=== PATIENT | female | born 1935 | race Caucasian/White ===

== ENCOUNTER 2017-01-29 08:50 | Inpatient (IN) | payer MEDICARE, BC ==
[~2017-01-29 08:50] MED LIST: MORPHINE SULFATE 15 MG TABLET.SA PO PRN; RINGERS SOLUTION,LACTATED 1,000 ML IV PRN; ROPIVACAINE HCL/PF 100 MG, KETOROLAC TROMETHAMINE 30 MG, EPINEPHrine 0.2 MG in NORMAL S... IJ PRN; TRANEXAMIC ACID 1,000 MG in NORMAL SALINE 100 ML IV PRN; ceFAZolin SODIUM 1 GM VIAL IV PRN
--- OUTSIDE RECORDS SUMMARY | 2017-01-29 08:54 | XMS REPORT | Continuity of Care Document ---
:1935 Author Organization [employer] [place] [address] Care Team Providers Name Role Phone Guero Henry Juliana Primary Care Provider [phone] Source Comments This disclosure is being made pursuant to the [employer] program and maynot contain all information available regarding this patient.[employer] Active Allergies and Adverse Reactions No Known Allergies Current Medications Be aware that medications may not be up to date as of this document. Alwaysverify current medications with the patient. Prescription Sig. Disp. Refills Start Date End Date Status metformin Take 1,000 mg by Active (GLUCOPHAGE) 1000 MG mouth 2 (two) tablet times daily with meals. losartan (COZAAR) 25 Take 25 mg by Active MG tablet mouth daily. glimepiride (AMARYL) Take 2 mg by mouth Active 2 MG tablet every morning before breakfast. simvastatin (ZOCOR) Take 20 mg by Active 20 MG tablet mouth nightly. aspirin 325 MG EC Take 1 tablet by 60 tablet 0 10/31/2013 Active tablet mouth 2 (two) times daily. gabapentin Take 1 capsule by 14 capsule 0 10/31/2013 Active (NEURONTIN) 300 MG mouth nightly. capsule HYDROcodone-acetamino Take 1-2 tablets 80 tablet 1 10/31/2013 Active phen (NORCO) 7.5-325 by mouth every 4 MG per tablet (four) hours as needed. Indications: Moderate to Moderately Severe Pain Active Problems Problem Noted Date Postoperative anemia due to acute blood loss 10/29/2013 PONV (postoperative nausea and vomiting) 10/29/2013 S/P total knee replacement, Right 10/28/13 Dr. Barrett 10/28/2013 Hypertension Arthritis Diabetes mellitus type II, non insulin dependent (HCC) Hyperlipidemia Most Recent Encounters Date Type Specialty Providers Description 12/26/2016 Surgery General Surgery Casper Barrett MD Canceled LEFT TOTAL KNEE REPLACEMENT Social History Tobacco Use Types Packs/Day Years Used Date Never Smoker Smokeless Tobacco: Never Used Alcohol Use Drinks/Week oz/Week Comments No Last Filed Vital Signs Vital Sign Reading Time Taken Blood Pressure 152/72 10/31/2013 7:41 AM CDT Pulse 88 10/31/2013 7:41 AM CDT Temperature 36.7 C (98 F) 10/31/2013 7:41 AM CDT Respiratory Rate 16 10/31/2013 7:41 AM CDT Height 1.676 m (5' 6") 10/28/2013 8:39 AM CDT Weight 65.9 kg (145 lb 4.5 oz) 10/28/2013 8:39 AM CDT Body Mass Index 23.46 10/28/2013 8:39 AM CDT Oxygen Saturation 94% 10/31/2013 7:41 AM CDT Plan of Care Health Maintenance Due Date Last Done Comments Tetanus/Pertussis (1 - Tdap) 1952 Well Adult Visit 1983 Zoster Vaccine 60+ 1993 Bone Density 1998 Pneumococcal Low/Medium Risk 65+ (1 of 2 - PCV13) 1998 Influenza Immunization (#1) 2016 Results from Last 3 Months Not on file Insurance Payer Benefit Plan / Group Subscriber ID Type Phone Address MEDICARE MEDICARE A AND B [id number] [phone] [address] [place] [address] [employer] [place] [place] [id number] [phone] [id number] SUPPLEMENT [address] [place] [address]
--- NOTE | 2017-01-29 10:49 | PREOP NOTE ---
Preoperative Progress Note - Preoperative Changes Changes to Preop Condition?: No Changes
[2017-01-29] MEDS ORDERED: RINGERS SOLUTION,LACTATED 1,000 ML IV ONE ×2 (12:00→13:05)
[2017-01-29] MEDS ORDERED: diphenhydrAMINE HCL 50 MG/ML VIAL IV PRN (13:49)
[2017-01-29] MEDS ORDERED: HYDROmorphone HCL 1 MG/ML DISP.SYRIN IV PRN (13:49)
[2017-01-29] MEDS ORDERED: ONDANSETRON HCL/PF 2 MG/ML VIAL IV PRN (13:49)
[2017-01-29] MEDS ORDERED: MAGNESIUM HYDROXIDE 30 ML UDC PO PRN (13:49)
[2017-01-29] MEDS ORDERED: MAG HYDROX/ALUMINUM HYD/SIMETH 30 ML UDC PO PRN (13:49)
[2017-01-29] MEDS ORDERED: PROMETHAZINE HCL 5 MG in DEXTROSE 5 % IN WATER 50 ML IV PRN ×2 (13:49)
--- NOTE | 2017-01-29 13:56 | OR ---
Operative Report - Dictated Report Narrative: Date: 01/29/2017 Preoperative diagnosis: Left Knee degenerative joint disease. Postoperative diagnosis: Left Knee degenerative joint disease. Procedure: Left Total knee arthroplasty. Surgeon: Honorio Francis M.D. Correspondence Clerk: Rashad Carlton PA-C, Marv Varela PA-C Anesthesia: Spinal with regional block and local periarticular joint injection. Complications: None Specimens: Bone for disposal. Estimated blood loss: Minimal. Tourniquet time: 70 Minutes at 325 millimeters of mercury. Retained implants: Depuy Attune size 6 left lugged cemented posterior stabilized femoral component. Size 6 fixed-bearing cemented tibial platform. 6 by 6 millimeter posterior stabilized cross-linked tibial insert. 35 millimeter medialized patella button. Indications: Mrs. Wright is a a 81-year-old female who has had long-standing left knee pain. This patient was followed in my clinic for period of time with significant complaints of left knee pain consistent with arthritic changes. They had failed conservative measures including, but not limited to, activity modification, passage of time, medications, and other conservative measures. Patient wished to proceed with surgical treatment. The risks, benefits, and alternatives were discussed in clinic. The risks of , blood clots, bleeding, infection, nerve/tendon blood vessel/ injury, malposition of components, intraoperative fracture, postoperative limited range of motion, persistent pain, failure of components, and need for additional procedures. Patient wished to proceed consent was obtained after answering all questions. Procedure: After marking the correct extremity on the floor, the patient was taken to the operating room. A timeout was performed. IV antibiotics consisting of Ancef were administered prior to the procedure. A regional followed by spinal anesthetic was induced by anesthesia on the operative table per my request with all bony prominences well-padded. Barrera catheter was placed , and a bump was placed under the operative side buttock. SCDs and TOREY hose were utilized on the nonoperative leg. A well-padded tourniquet was applied to the operative thigh. The operative leg was then pre-scrubbed with alcohol prepped, and draped in a standard sterile fashion. After exsanguinating the extremity with an Esmarch bandage, the tourniquet was inflated. After marking out the anterior knee for standard incision centered over the patella, the skin was incised and dissected down to the joint retinaculum. The joint retinaculum was marked out as well as the horizontal axis of the patella, and a standard medial parapatellar arthrotomy was then made. The most proximal aspect of the quadriceps tendon and the patella tendon insertion were protected from release. A partial synovectomy was performed as well as a resection of the infrapatellar fat pad. The distal femoral fat pad proximal to the trochlea was also resected using cautery. The soft tissues were elevated off the medial aspect of the proximal tibia using a Dumont elevator ensuring that we did not transect the medial collateral ligament. Upon initial evaluation range of motion was approximately 0 degrees to 130 degrees of flexion. There were signs of advanced arthrosis in the medial and patellofemoral joint spaces. There were large marginal osteophytes which were removed with a rongeur. The knee was hyperflexed and the patella was tucked laterally. Protecting the surrounding soft tissues with Homans, an entry drill was placed down the femoral canal using Whitesides line for guidance into the entry point. The intramedullary femoral alignment katie was utilized in order to cut the distal femur in 5 degrees of valgus resecting 10 millimeters of bone. Next the distal femur was sized to a size 6. A posterior referencing guide was utilized to place the distal femoral cutting block in 3 degrees of external rotation. This was pinned into place. The rotation was confirmed both visually and based on anatomic landmarks. The 4 in 1 cutting jig of the appropriate size was utilized in order to make all bony cuts. The angle wing was used to ensure no notching. Retractors were utilized in order to protect surrounding soft tissues. This cut did not result in any excessive notching. We then cut the box centered over the distal femur. This allowed for resection of the anterior and posterior cruciate ligaments. I then turned my attention to the preparation of the tibia. Using an extra medullary tibial alignment katie, 2 millimeters of bone was resected off the medial articular surface. This was made perpendicular to the mechanical axis of the joint with the alignment katie centered over the ankle mortise. The alignment katie was checked and was noted to be parallel to the mechanical axis, centered over the medial one third of the tibial tubercle, paralleling the anterior surface of the tibia. We then turned our attention to the remaining meniscus and soft tissues. These were removed while protecting the surrounding ligaments and soft tissues. The marginal osteophytes off the anterior, posterior, medial, lateral aspects of the femur and tibia were removed. The tibia was sized out to a size 6. Next the tibia was drilled and punched in an externally rotated position. Next the trial femur and a series of tibial inserts were utilized in order to allow for full extension and maximal flexion. It was found that a 6 millimeter insert gave the best range of motion and stability at multiple flexion points as well as at full extension there was less than 2 mm of gapping both medially and laterally. There is minimal anterior translation with the knee at 90 degrees of flexion and no signs of being able to dislocate the knee. The patella was then prepared. The initial thickness was 25 millimeters. This was reamed down to 15 millimeters parallel to the anterior surface of the patella. It was sized out to a size 35 medialized patella button. This was then drilled and trialed. Without any medial restraint the patella tracked appropriately and did not sublux or dislocate. At this point, it was felt these were the appropriate sized implants, and all trials were removed. The standard periarticular joint injection consisting of ropivacaine, Toradol, and epinephrine were injected into the periarticular joint tissues. The bony surfaces were thoroughly irrigated with a pulsatile- suction saline irrigation device. A bone plug from the prior resected anterior chamfer cut was placed into the drill hole at the distal femur. The bony surfaces were then dried in preparation for placement of the implants. The cement was vacuum mixed per the high school agriculture teacher's instructions. The cement was placed on the dry bony surfaces and posterior aspect of the implants. The implants were impacted into place, removing all extruded cement. At this point anesthesia administered tranexamic acid per protocol intravenously. The knee was placed in extension with axial loading with the trial insert while the cement cured. Once the cement cured, all remaining extruded cement was removed. The knee was placed through a range of motion with the trial insert to ensure appropriate range of motion and stability. Final range of motion was approximately 0 to 130 degrees. The knee was again thoroughly irrigated with pulsatile saline lavage. The final polyethylene insert was then impacted into place ensuring no retained soft tissues. The remaining periarticular joint injection was injected. A medium Hemovac drain was placed exiting superior laterally. The knee was then placed over a triangle and the arthrotomy was closed with interrupted #1 Vicryl after thoroughly irrigating the joint. The deep and subcutaneous tissues were closed with interrupted oh and 3-0 Vicryl respectively. Skin was closed with a running subcutaneous 3-0 Monocryl and Prineo Dermabond dressing. 4 x 4's, Sof-Rol, and a full leg Dontae wrap were applied. All sponge, needle, blade, and instrument counts were correct prior to closing the wounds. Postoperative condition: The patient was awoken and transferred to the postanesthesia care unit in stable condition. Plan is to be admitted to the inpatient medical/surgical floor postoperatively for 24 hours of IV antibiotics , physical therapy, occupational therapy, and medical comanagement. Patient will be weightbearing as tolerated with range of motion as tolerated. DVT prophylaxis will be with SCDs, TOREY hose, and pharmacological anticoagulation. Anticipated hospital stay is approximately 2-4 days.
[2017-01-29] MEDS ORDERED: SCOPOLAMINE HYDROBROMIDE 1.5 MG PATC TD SCH (14:00)
[2017-01-29] MEDS: RINGERS SOLUTION,LACTATED 1,000 ML IV PRN ×2 (14:48→21:40)
[2017-01-29] MEDS: KETOROLAC TROMETHAMINE 15 MG/ML VIAL IV SCH ×2 (14:50→20:49)
--- NOTE | 2017-01-29 15:30 | OR ---
Anesthesia Procedure Note - Anesthesia Procedure Note Date of Service: 01/29/17 Narrative: Vital Signs - Last Taken Temp 36.4 C L 01/29/17 14:20 Pulse 67 01/29/17 14:46 Resp 16 01/29/17 14:46 BP 151/70 01/29/17 14:46 Pulse Ox 96 01/29/17 14:46 O2 Oxygen Delivery Method Room Air 01/29/17 15:28 ANESTHESIA PROCEDURE NOTE Date of Procedure: 01/29/2017 Time of procedure: 1205. Performed by: UCHE Hunt CRNA, MSN Grinding Wheel Operator: Ava Hernandez RN. Preprocedure diagnosis: Left total knee replacement, requested pain relief. Post procedure diagnosis: Same. Procedure: Left Femoral nerve block. Indications: Post left total knee pain relief. Findings: See below. Details of the procedure: The patient was brought to OR for and placed in the supine position. The patient was prepped with chlorhexidine and using ultrasound guidance the left femoral nerve and artery were identified and lidocaine 1% was infiltrated to the skin of the intended injection site. Under ultrasound guidance the femoral nerve was approached until a shoulder/arm response was identified on nerve stimulator. Once the stimulator response was effective at less than 0.5 mV and greater than 0.3 mV the femoral nerve was surrounded with 30 mL bupivacaine 0.5% with 1-200,000 epinephrine. Please see radiology/ultrasound report for details and images of the procedure. EBL: 0 Fluids: N/A. Specimen: N/A. Post procedure condition: The patient tolerated the procedure well. No complications were noted. Thank you for this consultation. Simone Dwyer CRNA, MEDIA ARTS PROFESSOR, MSN
[2017-01-29] MEDS: ceFAZolin SODIUM 1 GM in DEXTROSE 5 % IN WATER 100 ML IV SCH ×4 (16:00→20:51)
[2017-01-29] MEDS: HYDROcodone/ACETAMINOPHEN 1 EACH TABLET PO PRN (18:32)
[2017-01-29] MEDS: SENNOSIDES/DOCUSATE SODIUM 1 TAB TABLET PO SCH (20:49)
[2017-01-29] MEDS: OXYBUTYNIN CHLORIDE 5 MG TABLET PO SCH (20:50)
[2017-01-29] MEDS: DONEPEZIL HCL 10 MG TABLET PO SCH (20:50)
[2017-01-29] MEDS: CLOBETASOL PROPIONATE 15 APPL TUBE TP SCH (20:50)
[2017-01-30] MEDS: KETOROLAC TROMETHAMINE 15 MG/ML VIAL IV SCH ×4 (02:51→20:24)
[2017-01-30] MEDS: ceFAZolin SODIUM 1 GM in DEXTROSE 5 % IN WATER 100 ML IV SCH ×2 (02:51)
[2017-01-30 06:03] LABS: Hematocrit 29.7 % (37.0-47.0); Mean Cell Volume 86.1 fl (78-100); Mean Corpuscular Hgb Conc 33.7 g/dl (32-36); Mean Platelet Volume 10.5 fl (6.0-9.5); Platelet Count 192 K/mm3 (150-450); Red Blood Count 3.45 M/mm3 (4.2-5.4); White Blood Count 6.5 K/mm3 (4.0-10.5)
[2017-01-30 06:39] LABS: Anion Gap 9.8 mmol/L (6.8-13.8); BUN/Creatinine Ratio 16.4 (9.0-21.6); Calcium * 8.1 mg/dL (7.9-10.9); Carbon Dioxide 28.9 mmol/L (24-32.6); Estimated Creat Clear 50.4; Potassium 3.7 mmol/L (3.4-4.6)
[2017-01-30] MEDS: PANTOPRAZOLE SODIUM 20 MG TABLET.DR PO SCH (07:29)
--- NOTE | 2017-01-30 07:58 | PN ---
Subjective - Date and Time Seen Date: 01/30/17 Time: 07:57 Subjective Narrative: Subjective: Reports no concerns. Was able to get to the chair with therapy. Pain is well-controlled. Voiding without any complications. Tolerating by mouth intake. Denies any nausea or vomiting. Denies calf pain. Slept well. Physical exam: Alert and oriented to person, place and time Left lower Extremity: Palpable dorsalis pedis pulse. Sensation grossly intact to light touch. Dressings clean dry. Able to flex and extend ankle and toes. No excessive drainage. Calf and thigh are soft and nontender. Assessment: Postop day 1 status post left total knee arthroplasty. Plan: Continue with physical and occupational therapy weightbearing as tolerated. Continue with anticoagulation. 24 hours postoperative prophylactic antibiotics. Pain control with goal to rely on oral medications. Continue bowel regimen. Will need 6 weeks with walker or assitive device to protect joint while ambulating during the recovery process. Discharge planning - the plan is for the [facility] once accepted for additional physical therapy. Discontinue drain and Barrera catheter. Repeat labs in a.m. Objective - Vitals Vitals: Last Vital Signs Temp 36.4 C L 01/30/17 06:30 Pulse 80 01/30/17 06:30 Resp 16 01/30/17 06:30 BP 135/57 01/30/17 06:30 Pulse Ox 99 01/30/17 06:30 - Abnormal Lab Findings Abnormal Lab Findings: Abnormal Lab Results 01/30/17 01/30/17 Range/Units 05:30 05:30 RBC 3.45 L (4.2-5.4) M/mm3 Hgb 10.0 L (12.5-16.0) gm/dL Hct 29.7 L (37.0-47.0) % MPV 10.5 H (6.0-9.5) fl Random Glucose 125 H (70-110) mg/dL [facility] Physician Documentation - Urinary Catheter Management Straight Date of Insertion: 01/29/17 Time of Insertion: 12:30 Date of Removal: 01/30/17 Time of Removal: 06:50 Assessment/Plan - Problems/Diagnosis (1) Hypertension Problem: Chronic (2) Anxiety Problem: Chronic (3) GERD (gastroesophageal reflux disease) Problem: Chronic (4) Vitamin C deficiency Problem: Chronic (5) Dementia Problem: Chronic (6) Status post total left knee replacement Problem: Acute (7) Acute blood loss anemia Problem: Acute (8) Diabetes mellitus Problem: Chronic Qualifiers: Diabetes mellitus type: type 2
[2017-01-30] MEDS: OXYBUTYNIN CHLORIDE 5 MG TABLET PO SCH ×2 (08:36→20:24)
[2017-01-30] MEDS: FLUoxetine HCL 20 MG CAPSULE PO SCH (08:36)
[2017-01-30] MEDS: GLIMEPIRIDE 2 MG TABLET PO SCH (08:37)
[2017-01-30] MEDS: CHOLECALCIFEROL 5,000 UNIT TABLET PO SCH (08:37)
[2017-01-30] MEDS: CLOBETASOL PROPIONATE 15 APPL TUBE TP SCH ×2 (08:37→20:25)
[2017-01-30] MEDS: HYDROcodone/ACETAMINOPHEN 1 EACH TABLET PO PRN ×4 (08:59→22:52)
[2017-01-30] MEDS: RIVAROXABAN 20 MG TABLET PO SCH (13:09)
[2017-01-30] MEDS: SENNOSIDES/DOCUSATE SODIUM 1 TAB TABLET PO SCH (20:24)
[2017-01-30] MEDS: DONEPEZIL HCL 10 MG TABLET PO SCH (20:24)
[2017-01-31] MEDS: HYDROcodone/ACETAMINOPHEN 1 EACH TABLET PO PRN (02:35)
[2017-01-31] MEDS: KETOROLAC TROMETHAMINE 15 MG/ML VIAL IV SCH ×2 (02:36→08:51)
[2017-01-31 05:17] LABS: Hematocrit 26.3 % (37.0-47.0); Hemoglobin 8.8 gm/dL (12.5-16.0); Mean Cell Volume 85.9 fl (78-100); Mean Corpuscular Hemoglobin 28.8 pg (27-31); Mean Corpuscular Hgb Conc 33.5 g/dl (32-36); Mean Platelet Volume 10.1 fl (6.0-9.5); Platelet Count 182 K/mm3 (150-450); Red Blood Count 3.06 M/mm3 (4.2-5.4); Red Cell Distribution Width 14.1 % (11.5-14.0); White Blood Count 6.4 K/mm3 (4.0-10.5)
[2017-01-31 05:39] LABS: Anion Gap 9.5 mmol/L (6.8-13.8); Calcium * 8.1 mg/dL (7.9-10.9); Carbon Dioxide 27.9 mmol/L (24-32.6); Estimated Creat Clear 45.4; Potassium 4.4 mmol/L (3.4-4.6)
[2017-01-31] MEDS: PANTOPRAZOLE SODIUM 20 MG TABLET.DR PO SCH (06:34)
[2017-01-31] MEDS: FLUoxetine HCL 20 MG CAPSULE PO SCH (08:51)
[2017-01-31] MEDS: OXYBUTYNIN CHLORIDE 5 MG TABLET PO SCH ×2 (08:51→20:29)
[2017-01-31] MEDS: GLIMEPIRIDE 2 MG TABLET PO SCH (08:51)
[2017-01-31] MEDS: CLOBETASOL PROPIONATE 15 APPL TUBE TP SCH ×2 (08:52→20:29)
[2017-01-31] MEDS: CHOLECALCIFEROL 5,000 UNIT TABLET PO SCH (08:52)
[2017-01-31] MEDS: RIVAROXABAN 20 MG TABLET PO SCH (08:52)
[2017-01-31] MEDS: LORazepam 0.5 MG TABLET PO PRN ×3 (09:26→20:28)
--- NOTE | 2017-01-31 11:02 | PN ---
Subjective - Date and Time Seen Date: 01/31/17 Time: 11:01 Subjective Narrative: Subjective: Reports no concerns. Was able to walk in the [facility] with therapy. Pain is well-controlled. Voiding without any complications. Tolerating by mouth intake. Denies any nausea or vomiting. Slept well. Physical exam: Alert and oriented to person, place and time Left lower Extremity: Palpable dorsalis pedis pulse. Sensation grossly intact to light touch. Dressings clean dry. Able to flex and extend ankle and toes. No excessive drainage. Calf and thigh are soft and nontender. Assessment: Postop day 2 status post left total knee arthroplasty. Plan: Continue with physical and occupational therapy weightbearing as tolerated. Continue with anticoagulation. Pain control with goal to rely on oral medications. Continue bowel regimen. Will need 6 weeks with walker or assitive device to protect joint while ambulating during the recovery process. Discharge planning - the plan is for the [facility] once accepted and meets Medicare midnight rule for additional physical therapy. Objective - Vitals Vitals: Last Vital Signs Temp 36.9 C 01/31/17 06:58 Pulse 68 01/31/17 06:58 Resp 18 01/31/17 06:58 BP 144/57 01/31/17 06:58 Pulse Ox 96 01/31/17 06:58 - Abnormal Lab Findings Abnormal Lab Findings: Abnormal Lab Results 01/31/17 Range/Units 05:15 RBC 3.06 L (4.2-5.4) M/mm3 Hgb 8.8 L (12.5-16.0) gm/dL Hct 26.3 L (37.0-47.0) % RDW 14.1 H (11.5-14.0) % MPV 10.1 H (6.0-9.5) fl Cauti Physician Documentation - Urinary Catheter Management Straight Date of Insertion: 01/29/17 Time of Insertion: 12:30 Date of Removal: 01/30/17 Time of Removal: 06:50 Assessment/Plan - Problems/Diagnosis (1) Hypertension Problem: Chronic (2) Anxiety Problem: Chronic (3) GERD (gastroesophageal reflux disease) Problem: Chronic (4) Vitamin C deficiency Problem: Chronic (5) Dementia Problem: Chronic (6) Status post total left knee replacement Problem: Acute (7) Acute blood loss anemia Problem: Acute (8) Diabetes mellitus Problem: Chronic Qualifiers: Diabetes mellitus type: type 2
[2017-01-31] MEDS: DONEPEZIL HCL 10 MG TABLET PO SCH (20:29)
[2017-01-31] MEDS: SENNOSIDES/DOCUSATE SODIUM 1 TAB TABLET PO SCH (20:29)
[2017-01-31] MEDS: ACETAMINOPHEN 500 MG TABLET PO PRN (23:28)
[2017-02-01] MEDS: PANTOPRAZOLE SODIUM 20 MG TABLET.DR PO SCH (06:56)
[2017-02-01 07:40] VITALS: BP 149/65
--- NOTE | 2017-02-01 07:54 | DS ---
(1) Hypertension Problem: Chronic (2) Anxiety Problem: Chronic (3) GERD (gastroesophageal reflux disease) Problem: Chronic (4) Vitamin C deficiency Problem: Chronic (5) Dementia Problem: Chronic (6) Status post total left knee replacement Problem: Acute (7) Acute blood loss anemia Problem: Acute (8) Diabetes mellitus Problem: Chronic Qualifiers: Diabetes mellitus type: type 2 Description of Stay: Mrs. Wright was admitted to the floor after undergoing left total knee arthroplasty. Tolerated this well. Was admitted to the floor postoperatively for 24 hours of IV antibiotics, pain control, medical comanagement, and occupational and physical therapy. OT and PT were consulted to assist with activities of daily living and ambulation. Was made weightbearing as tolerated with range of motion as tolerated. Pain was initially controlled with IV regimen. This was transitioned to oral once tolerating a by mouth intake. Was resumed on home diet and medications. Had a Barrera catheter inserted and the operating room which was discontinued on postoperative day 1. A drain was placed intraoperatively into the knee which was discontinued on postoperative day 1. Lovenox SCD and TOREY hose were utilized for DVT prophylaxis. Vital signs remained stable to the hospital course. Serial labs were obtained which showed a final hemoglobin of 8.8 grams. BMP was reviewed and was stable. Physical examination throughout the hospital course showed an extremity that had sensation that was intact to light touch, palpable pulses, a benign wound, motor intact to the toes, ankle, and knee. Knee range of motion was approximately 0 degrees to 70 degrees. Once an oral pain regimen was tolerated and physical therapy was progressing. There is some concern about her strength and mobility in that she was transferred to a nursing facility for additional physical therapy. Instructions: Continue with weightbearing as tolerated and range of motion as tolerated. She is okay to shower as long as there is no drainage from the wound. It is okay to get the wound wet. Do not soak or place patient in a tub or pool. If there is any drainage she is to keep the wound clean and dry. Cover with dry gauze and tape if there is any drainage and change every 2-3 days as needed. Cover wound while showering if there is any drainage from the wound. Continue with physical therapy. Resume home diet. Report any fever over 101.5 Fahrenheit, uncontrolled pain, increased drainage, foul odor of drainage, new or increased calf pain or shortness of breath, or any other significant complaints. A 325mg dialy aspirin will be started after finishing anticoagulation if not allergic. Continue with TOREY hose on the operative extremity until instructed otherwise. No driving until instructed otherwise. Follow up in approximately 10-14 days. Procedures Performed: see notes below List Procedures: Left total knee arthroplasty Discharge Disposition: [facility] Disposition: [facility] Condition: Good Discharge Activity: Activity as tolerated, Weight bearing Discharge Diet: Consistent carbs Discharge Level of Care:: SNF - [facility] Half-Way Therapy: Physicial Therapy, Occupation Therapy Referrals: Sandra Monk FNP [Primary Care Provider] - Additional Patient Instructions (free text): Follow-up in the office with Dr. Francis on 02/16/17@10:45am. Prescriptions (Any new or edited meds): HYDROcodone/ACETAMINOPHEN [Hull 5-325] 1 each PO Q3H PRN #60 tablet PRN Reason: Moderate Pain Rivaroxaban [Xarelto] 10 mg PO DAILY #7 tablet Sennosides/Docusate Sodium [Senokot-S] 2 tab PO HS #60 tablet Complete Home Medications List: Complete Home Medication List: Cholecalciferol (Vitamin D3) [Vitamin D3] 5,000 unit PO DAILY 01/12/17 Clobetasol Propionate/Emoll [Clobetasol Emollient 0.05% Crm] 1 appl TP BID 01/12 Donepezil HCl [Aricept] 10 mg PO HS 01/12/17 FLUoxetine HCL [Prozac] 40 mg PO DAILY 01/12/17 Glimepiride [Amaryl] 2 mg PO DAILY 01/12/17 LORazepam [Ativan] 0.5 mg PO TID PRN 01/12/17 Oxybutynin Chloride [Ditropan] 5 mg PO BID 01/12/17 Pantoprazole Sodium [Protonix] 20 mg PO DAILY 01/12/17 metFORMIN HCL [Glucophage] 1,000 mg PO BIDWM 01/12/17 HYDROcodone/ACETAMINOPHEN [Hull 5-325] 1 each PO Q3H PRN #60 tablet 02/01/17 Rivaroxaban [Xarelto] 10 mg PO DAILY #7 tablet 02/01/17 Sennosides/Docusate Sodium [Senokot-S] 2 tab PO HS #60 tablet 02/01/17
[2017-02-01] MEDS: RIVAROXABAN 20 MG TABLET PO SCH (08:52)
[2017-02-01] MEDS: FLUoxetine HCL 20 MG CAPSULE PO SCH (08:52)
[2017-02-01] MEDS: OXYBUTYNIN CHLORIDE 5 MG TABLET PO SCH (08:52)
[2017-02-01] MEDS: CLOBETASOL PROPIONATE 15 APPL TUBE TP SCH (08:52)
[2017-02-01] MEDS: GLIMEPIRIDE 2 MG TABLET PO SCH (08:52)
[2017-02-01] MEDS: CHOLECALCIFEROL 5,000 UNIT TABLET PO SCH (08:52)
[2017-02-01] MEDS: ACETAMINOPHEN 500 MG TABLET PO PRN (08:55)
== END 2017-02-01 09:10 | DRG 470 ==
LOC: MS 08:50
PROVIDERS: ADMIT Orthopaedic Surgery; ATTEND Orthopaedic Surgery
PROC: 0SRD0J9 Replacement of Left Knee Joint with Synthetic Substitute, Cemented, Open Approach (ICD-10-PCS; principal; 2017-01-29 11:30)
DX: M17.0 Bilateral primary osteoarthritis of knee (principal); D62 Acute posthemorrhagic anemia; M25.512 Pain in left shoulder; M25.511 Pain in right shoulder; G30.9 Alzheimer's disease, unspecified; F02.80 Dementia in other diseases classified elsewhere, unspecified severity, without behavioral disturbance, psychotic disturbance, mood disturbance, and anxiety; E11.9 Type 2 diabetes mellitus without complications; E55.9 Vitamin D deficiency, unspecified; F41.9 Anxiety disorder, unspecified; K21.9 Gastro-esophageal reflux disease without esophagitis
CPT/HCPCS: 27447; 36415; 73560; 80048; 85027; 97110; 97116; 97161; 97165; 97535; J2405